=== PATIENT | male | born 1955 | race Caucasian/White ===

== ENCOUNTER → 2023-10-08 13:55 | Outpatient (REF) | payer OTHER, SELFPAY | LOC: MRI 3T 13:55 | PROVIDERS: ATTENDING PHYSICIAN Internal Medicine | DX: M54.9 Dorsalgia, unspecified (principal) | CPT/HCPCS: 72148 ==

== ENCOUNTER → 2023-12-07 08:17 | Outpatient (REF) | payer OTHER, SELFPAY | LOC: DHCBC/DCA 08:17 | PROVIDERS: ATTENDING PHYSICIAN Internal Medicine Cardiovascular Disease; FAMILY PHYSICIAN Internal Medicine | DX: I48.0 Paroxysmal atrial fibrillation (principal); I42.2 Other hypertrophic cardiomyopathy; I25.10 Atherosclerotic heart disease of native coronary artery without angina pectoris | CPT/HCPCS: 78452; 93017; A9500 ==

== ENCOUNTER → 2023-12-09 08:15 | Outpatient (REF) | payer OTHER, SELFPAY | LOC: RCS 08:15 | PROVIDERS: ATTENDING PHYSICIAN Internal Medicine Cardiovascular Disease; FAMILY PHYSICIAN Internal Medicine | DX: R94.31 Abnormal electrocardiogram [ECG] [EKG] (principal); I48.0 Paroxysmal atrial fibrillation; I42.2 Other hypertrophic cardiomyopathy; I25.10 Atherosclerotic heart disease of native coronary artery without angina pectoris | CPT/HCPCS: 93306 ==

== ENCOUNTER 2025-01-04 06:26 | Day surgery (SDC) | payer OTHER, SELFPAY | END 2025-01-04 15:53 | disposition home or self-care (01) | LOC: GI 06:26 | PROVIDERS: ATTENDING PHYSICIAN Specialist | DX: Z12.11 Encounter for screening for malignant neoplasm of colon (principal); K57.30 Diverticulosis of large intestine without perforation or abscess without bleeding; D12.2 Benign neoplasm of ascending colon; D12.3 Benign neoplasm of transverse colon | CPT/HCPCS: 45385; 45380; 88305 ==

== ENCOUNTER → 2025-03-20 15:53 | Outpatient (REF) | payer OTHER, SELFPAY | LOC: HWRAD 15:53 | PROVIDERS: ATTENDING PHYSICIAN Nurse Practitioner Family | DX: L03.90 Cellulitis, unspecified (principal); R51.9 Headache, unspecified; R53.83 Other fatigue | CPT/HCPCS: 73610 ==